=== PATIENT | female | born 1965 | race Caucasian/White ===

== ENCOUNTER 2021-07-29 12:58 | Outpatient (CLI) | payer BC | END 2021-07-29 12:59 | disposition home or self-care (01) | LOC: CSHCT 12:58 | PROVIDERS: ATTEND Student in an Organized Health Care Education/Training Program | DX: J34.2 Deviated nasal septum (principal); H90.3 Sensorineural hearing loss, bilateral | CPT/HCPCS: 70553 ==

== ENCOUNTER 2024-06-26 10:30 | Outpatient (CLI) | payer BC | END 2024-06-26 10:31 | disposition home or self-care (01) | LOC: CSHMAMMO 10:30 | PROVIDERS: ATTEND Family Medicine | DX: Z12.31 Encounter for screening mammogram for malignant neoplasm of breast (principal); Z80.3 Family history of malignant neoplasm of breast | CPT/HCPCS: 77063; 77067 ==